=== PATIENT | female | born 1955 | race Caucasian/White ===

== ENCOUNTER 2020-05-21 09:57 | Outpatient (CLI) | payer BC, MEDICARE, SELFPAY ==
--- NOTE | 2020-05-21 10:59 | ECG_ITS ---
Measurements Intervals Independence Rate: 60 P: LA: 0 QRS: -9 QRSD: 81 T: 42 QT: 405 QTc: 406 Interpretive Statements SINUS RHYTHM NORMAL ECG Electronically Signed On 05-21-2020 11:14:27 CDT by Ervin Bower D.O.
[2020-05-21 11:35] LABS: Basophils Absolute Auto 0.1 K/mm3 (0.0-0.1); Eosinophils Absolute Auto 0.5 K/mm3 (0-0.3); Eosinophils Percent Auto 5.1 % (0-4.4); Hematocrit 41.2 % (37.0-47.0); Hemoglobin 13.6 g/dL (12.0-15.0); Immature Granulocyte Absolute 0.03 K/mm3 (0.00-0.031); Immature Granulocyte Percent A 0.3 % (0-0.5); Lymphocytes Absolute Auto 2.68 K/mm3 (0.9-3.2); Lymphocytes Percent Auto 25.7 % (18.3-44.2); Mean Corpuscular Hemoglobin 29.6 pg (26-34); Mean Corpuscular Volume 89.6 fl (80-100); Mean Platelet Volume 9.6 fl (7.4-10.4); Monocytes Absolute Auto 0.7 K/mm3 (0.1-0.6); Neutrophils Absolute Auto 6.4 K/mm3 (1.3-6.7); Neutrophils Percent Auto 60.9 % (45.5-73.1); Platelet Count Result 276 k/mm3 (150-375); Red Cell Distribution Width 12.5 % (11.5-14.5); White Blood Count 10.4 K/mm3 (4.5-10.0)
[2020-05-21 11:47] LABS: INR 0.9; Prothrombin Time 11.6 Seconds (11.1-14.7)
[2020-05-21 11:48] LABS: Partial Thromboplastin Time 26.7 SECONDS (22.3-36.8)
[2020-05-21 11:52] LABS: Alanine Aminotransferase 24 U/L (4-35); Albumin Level 4.7 g/dL (3.5-5.1); Alkaline Phosphatase 33 U/L (38-126); Anion Gap 7 mmol/L (8-16); Aspartate Amino Transferase 28 U/L (14-36); Bilirubin,Total 0.3 mg/dL (0.2-1.3); Blood Urea Nitrogen 15 mg/dL (7-17); Calcium 9.8 mg/dL (8.4-10.2); Carbon Dioxide 31 mmol/L (22-30); Chloride 102 mmol/L (98-107); Estimated Glomerular Filt Rate > 60; Glucose 103 mg/dL (65-105); Potassium 4.6 mmol/L (3.4-5.0); Sodium 140 mmol/L (137-145)
== END 2020-05-21 09:58 | disposition home or self-care (01) ==
LOC: ANHSURGERY 10:03
PROVIDERS: PCP Family Medicine; Visit Provider Urology
DX: I10 Essential (primary) hypertension (principal); N81.10 Cystocele, unspecified; Z01.818 Encounter for other preprocedural examination
CPT/HCPCS: 36415; 80053; 85025; 85610; 85730; 87086; 93005

== ENCOUNTER 2020-05-31 00:22 | Outpatient (CLI) | payer BC, MEDICARE, SELFPAY ==
[2020-06-01 13:40] LABS: SARS-CoV-2 RNA PCR Negative
== END 2020-05-31 00:23 | disposition home or self-care (01) ==
LOC: ANHCOVIDDT 00:22
PROVIDERS: PCP Family Medicine; Visit Provider Urology
DX: Z01.812 Encounter for preprocedural laboratory examination (principal); Z20.828 Contact with and (suspected) exposure to other viral communicable diseases
CPT/HCPCS: 87635; C9803; U0003

== ENCOUNTER 2020-06-03 01:02 | Day surgery (SDC) | payer BC, MEDICARE, SELFPAY ==
[2020-05-21 10:13] VITALS: BP 124/59; PULSE 59; RESP 16; TEMP 37.3; O2SAT 98; BMI 31.0
--- NOTE | 2020-05-30 16:29 | PM.IMHP ---
H&P: HPI History of Present Illness Date/Time: 05/30/20 16:29 Chief complaint: Vaginal Vault Prolapse Narrative: Poonam Wagner is a 65 year old female wtih POP and TRACEY PMFSH Social History Social History Smoking status: Never smoker Spiritual care concerns: No Meds Home Medications and Allergies Home Medications Medication Instructions Recorded Confirmed Type albuterol sulfate [ProAir HFA] 2 puff INHALATION QID PRN 05/21/20 05/21/20 History aspirin [Aspir-81] 81 mg PO DAILY 05/21/20 05/21/20 History atenolol 25 mg PO QAM 05/21/20 05/21/20 History cholecalciferol (vitamin D3) 10 mcg PO DAILY 05/21/20 05/21/20 History [Vitamin D3] lactobacillus combination no.4 3,000 mmu cells PO DAILY 05/21/20 05/21/20 History [Probiotic] levothyroxine 100 mcg PO QAM 05/21/20 05/21/20 History metformin 1,000 mg PO BID 05/21/20 05/21/20 History omega 1-cvv-ktq-fish oil [Fish Oil] 1 cap PO BID 05/21/20 05/21/20 History rosuvastatin 20 mg PO HS 05/21/20 05/21/20 History trimethoprim 100 mg PO HS 05/21/20 05/21/20 History Allergies Allergy/AdvReac Type Severity Reaction Status Date / Time nitrofurantoin Allergy Severe Rash Verified 05/21/20 10:18 [From Macrobid] Sulfa (Sulfonamide Allergy Severe Swelling Verified 05/21/20 10:18 Antibiotics) ciprofloxacin AdvReac Intermediate Nausea Verified 05/21/20 10:20 Exam Const: General: no acute distress HENMT: Mouth: Yes moist mucous membranes Eyes: General: appearance normal, both eyes and all related structures Neck: Neck: supple Resp: Effort & Inspection: normal respiratory effort GI: GI Palp: Yes Soft to palpation : Other: Anterior wall +3 apex-1. Skin: General skin exam: normal color Extrem: General: normal to inspection Psych: Mental Status: mental status grossly normal Assessment and Plan Assessment and plan (1) Prolapse of vaginal vault after hysterectomy: Code(s): N99.3 - Prolapse of vaginal vault after hysterectomy Status: Acute Assessment and Plan: Robotic colpopexy (2) TRACEY (stress urinary incontinence, female): Code(s): N39.3 - Stress incontinence (female) (male) Status: Acute Assessment and Plan: urethral sling
[2020-06-03] VITALS (19 sets, daily range): BP systolic 108–159; BP diastolic 43–83; PULSE 62–92; RESP 14–20; TEMP 36.3–37.1; O2SAT 92–100
--- NOTE | 2020-06-03 07:25 | WPDHPUPDATE1 ---
History and Physical Update Update Date/Time: 06/03/20 07:25 History and Physical has been reviewed, including an updated exam of the patient. There are NO changes in the patient's condition. Risks, benefits, and alternatives have been discussed and questions answered. Patient agrees to proceed with procedure.
--- NOTE | 2020-06-03 10:34 | WPDANESEPPF ---
Anes - Initial Pre Proc Eval Procedure: Operation Date: 06/03/20 12:00 Proposed Procedures p Robotic Sacrocolpopexy, Possible Urethral Sling - Rayray Tee MD Date/Time: 06/03/20 10:34 Surgeon: Rayray Tee MD Pre Op Diagnosis: Vaginal Vault Prolapse Patient Data Age: 65 Gender: F Height: 1.63 m Weight: 82 kg Last Vital Signs Temp 37.3 C 05/21/20 10:13 Pulse 59 L 05/21/20 10:13 Resp 16 05/21/20 10:13 BP 124/59 L 05/21/20 10:13 Pulse Ox 98 05/21/20 10:13 Allergies Allergy/AdvReac Type Severity Reaction Status Date / Time nitrofurantoin Allergy Severe Rash Verified 06/03/20 10:47 [From Macrobid] Sulfa (Sulfonamide Allergy Severe Swelling Verified 06/03/20 10:47 Antibiotics) ciprofloxacin AdvReac Intermediate Nausea Verified 06/03/20 10:47 Home Medications Medication Instructions Recorded Confirmed Type albuterol sulfate [ProAir HFA] 2 puff INHALATION QID PRN 05/21/20 06/03/20 History aspirin [Aspir-81] 81 mg PO DAILY 05/21/20 06/03/20 History atenolol 25 mg PO QAM 05/21/20 06/03/20 History cholecalciferol (vitamin D3) 10 mcg PO DAILY 05/21/20 06/03/20 History [Vitamin D3] lactobacillus combination no.4 3,000 mmu cells PO DAILY 05/21/20 06/03/20 History [Probiotic] levothyroxine 100 mcg PO QAM 05/21/20 06/03/20 History metformin 1,000 mg PO BID 05/21/20 06/03/20 History omega 3-mks-kws-fish oil [Fish Oil] 1 cap PO BID 05/21/20 06/03/20 History rosuvastatin 20 mg PO HS 05/21/20 06/03/20 History trimethoprim 100 mg PO HS 05/21/20 06/03/20 History Patient hx anesthesia problems: none Family hx anesthesia problems: none PMFSH Past Medical History Medical History (Updated 06/03/20 @ 09:37 by Manohar Aragon DO) Asthma Depression Diabetes type 2, controlled History of rheumatic fever murmur Hypertension Hypothyroidism Surgical History Surgical History (Updated 06/03/20 @ 09:37 by Manohar Aragon DO) History of appendectomy History of cholecystectomy History of hysterectomy History of tonsillectomy Social History Social History Smoking status: Never smoker Living arrangements: with family Spiritual care concerns: No Anes - Eval Final PreProcedure Day of Procedure 06/03/20 10:34 Patient weight: obese Heart: regular rate and rhythm Lungs: clear to auscultation and normal air movement Airway: Mallampati scale class II Neurological: alert and oriented Last oral intake: >/= 8 hours ASA classification: III Emergent: no Anesthetic plan: proceed Anesthesia type and monitoring: general ETT and standard monitoring Informed Consent: The patient's anesthetic plan and its attendant risks and benefits were discussed with the patient/family/POA. Questions were solicited and answers provided to the satisfaction of the patient/family/POA.
[2020-06-03] MEDS: LACTATED RINGERS 1,000 ML 30 ML IV CONT ×2 (10:55→14:00)
[2020-06-03 11:01] LABS: Glucose Point of Care 129 (65-105)
[2020-06-03] MEDS: ceFAZolin 2 GM/D5W 50 ML 2 GM/50 ML BAG IVPB (11:11)
[2020-06-03] MEDS: BUPIVACAINE/EPINEPHRINE 0.25% 50 ML VIAL 25 ML INFILTRATE (11:52)
--- NOTE | 2020-06-03 13:50 | PM.PROC ---
Procedure Note - Detailed Date of procedure: 06/03/20 Pre-op diagnosis: Vaginal Vault Prolapse Post hysterectomy vaginal vault prolapse Stress urinary incontinence Post-op diagnosis: same Procedure performed: Robotic assisted laparoscopic sacral colpopexy [place] urethral sling Description of procedure: She understands the risks of bleeding, infection, recurrence of prolapse, diskitis, postoperative voiding dysfunction including incontinence and retention, dyspareunia, persistent or recurrent stress incontinence, vaginal mesh extrusion, urinary tract mesh erosion, bowel injury or obstruction, damage to surrounding organs, medical related complications. Agrees to proceed She was correctly identified and informed consent was obtained. She is brought to the operating room. She was given general anesthesia. She was placed in the low lithotomy position. All pressure points were padded. She was given appropriate perioperative antibiotics. A time-out was performed. I anesthetized the skin 3 fingerbreadths cephalad to the umbilicus. I incised the skin. I located the fascia. I entered the fascia sharply. I placed Vicryl sutures for later fascial closure. I placed a midline trocar. Under direct vision 2 additional trocars were placed in the right and left upper quadrant. She was placed in steep Trendelenburg. The robot was docked. I then sat at the console. With the Sizer in the vagina I created a plane on the anterior and posterior vaginal wall. I took great care not to injure the vagina bladder or rectum. Of note it was very scarred in this area. I introduced the mesh into the abdomen. I sewed the anterior leaflet of mesh on the anterior vaginal wall and posterior leaflet of mesh on the posterior vaginal wall with several sutures with 2 Goritex taking great care not to go through and through. I then reflected the colon laterally. I opened up the peritoneum over the sacral promontory. I carried this incision into the cul-de-sac. I located the ureter and kept lateral. I freed up the edges of the peritoneum. I located the anterior longitudinal ligament of the sacrum. I then tensioned my mesh appropriately. I did a vaginal exam to ensure prolapse reduction without undue tension. I then sewed the proximal leaflet of mesh onto the ligament with 3 sutures of 2 0 [place]-Good. I used a 2 0 Monocryl to completely and meticulously retroperitonealized all mesh. I allowed the colon to go back into its normal anatomic location no sign of any impingement or stricturing. The abdomen was exited. Fascial sutures were closed. Skin was closed. Glue was applied. She was repositioned and prepped for urethral sling. I marked out the thigh incisions. I anesthetized the skin and made those incisions. I anesthetized the anterior vaginal wall over the mid urethra. I made a 1 cm incision. I dissected out laterally taking great care not to injure the urethra or the vaginal wall. I passed the helical trocars. First on the left and then on the right. This was done from the thigh incision towards the vaginal incision. The sling was connected to the trocars and brought out through the thigh incision. I tensioned the sling appropriately. I cut and removed the plastic sheaths. I then closed the incision with 2 0 Vicryl. Cystoscopy showed no surgical artifact in the bladder. No surgical artifact in the urethra. Ureteral orifices were seen to excrete clear yellow urine. The Patel catheter was replaced. She was awakened and transferred to the PACU in stable condition. Implants: Y mesh Anesthesia: GETA Surgeon: Rayray Tee MD Drains: Yes (Patel catheter) Packing: No Pathology: none sent Complications: No immediate complications Condition: stable Disposition: PACU
[2020-06-03 14:42] LABS: Glucose Point of Care 224 (65-105)
[2020-06-03] MEDS: ONDANSETRON INJ 4 MG/2 ML VIAL IV PUSH (16:43)
[2020-06-03] MEDS: KCL 20 MEQ/D5/0.45% SOD CHL 1,000 ML 100 ML IV CONT (16:51)
[2020-06-03] MEDS: MORPHINE SULFATE 2 MG/ML INJ IV PUSH (16:51)
--- NOTE | 2020-06-03 18:01 | PC.NURSE ---
This patient, Poonam Wagner, was received from PACU per bed to room 286 on 06/03/20 at 1621. Patient/family oriented to unit policies and routines
[2020-06-03] MEDS: ROSUVASTATIN 10 MG TABLET 20 MG PO (20:58)
[2020-06-03 21:07] LABS: Glucose Point of Care 223 (65-105)
[2020-06-03] MEDS: KETOROLAC 15 MG/ML VIAL (*BKC) IV PUSH (23:30)
[2020-06-04] VITALS (7 sets, daily range): BP systolic 90–116; BP diastolic 46–52; PULSE 75–86; RESP 16; TEMP 37.1–38; O2SAT 93–97
[2020-06-04] MEDS: KCL 20 MEQ/D5/0.45% SOD CHL 1,000 ML 100 ML IV CONT (04:49)
[2020-06-04] MEDS: KETOROLAC 15 MG/ML VIAL (*BKC) IV PUSH (05:57)
[2020-06-04] MEDS: LEVOTHYROXINE SODIUM 100 MCG TABLET PO (07:15)
[2020-06-04] MEDS: DOCUSATE SODIUM 100 MG CAPSULE PO (08:17)
[2020-06-04] MEDS: atenoloL 25 MG TABLET PO (08:19)
[2020-06-04] MEDS: metFORMIN HCL 500 MG TABLET 1000 MG PO (08:19)
[2020-06-04] MEDS: ENOXAPARIN 30 MG/0.3 ML SYRINGE SUB-Q (08:22)
[2020-06-04 08:37] LABS: Glucose Point of Care 156 (65-105)
--- NOTE | 2020-06-04 08:56 | WPDANESPN ---
Anes - Prog Note Post-Op Date/Time: 06/04/20 08:56 Cardiovascular status: normal Respiratory status: normal Airway patency: baseline Mental status: baseline Post-Op hydration status: normal Vital Signs: Last Vital Signs Temp 37.2 C 06/04/20 02:15 Pulse 86 06/04/20 08:19 Resp 16 06/04/20 05:00 BP 90/46 L 06/04/20 05:00 Pulse Ox 95 06/04/20 05:00 Pain Score (VAS): 5 I/O: Intake & Output 06/03/20 06/04/20 06/04/20 23:59 07:59 15:59 Intake Total 60 1500 Output Total 525 750 Balance -465 750 06/03/20 06/03/20 06/03/20 10:32 10:59 14:40 POC Capillary Glucose 129 H 224 H Blood Type A Positive Antibody Screen Negative 06/03/20 06/04/20 21:04 08:25 POC Capillary Glucose 223 H 156 H Blood Type Antibody Screen Post-procedural complaints: none Patient Feedback: Patient satisfied with anesthetic care.
[2020-06-04] MEDS: ACETAMINOPHEN 325 MG TABLET 650 MG PO (11:01)
[2020-06-04 12:50] LABS: Glucose Point of Care 124 (65-105)
--- NOTE | 2020-06-04 12:54 | WPDUROPN2 ---
Progress Note: A&P Assessment and Plan (1) Prolapse of vaginal vault after hysterectomy: Code(s): N99.3 - Prolapse of vaginal vault after hysterectomy Status: Acute Assessment and Plan: Patient is reluctant to ambulate. She is having some abdominal pain which is likely gas pain d/t constipation. Ok to give Simethicone 100mg QID PRN. Spoke with Dr. Tee and he agrees that she should be discharged home to encourage ambulation, increase in diet and fluids as tolerated. Take Tylenol for low grade fever, if fever of >102 occurs call the exchange or go to the ER. Urinating well on her own. Ok to discharge home today and follow up in the office as planned in two weeks. (2) TRACEY (stress urinary incontinence, female): Code(s): N39.3 - Stress incontinence (female) (male) Status: Acute Subjective Subjective Date/Time Seen: 06/04/20 12:54 Patient feeling fatigued and weak this morning, with a low grade fever of 100.4 which decreased to 98.7. She is reluctant to eat or drink, although she isn't nauseated. Review of Systems Cardiovascular: Cardiovascular: Denies chest pain and Denies dyspnea Respiratory: Respiratory: Reports no additional respiratory complaints Gastrointestinal: Gastrointestinal: Reports abdominal pain (at incision sites and pelvis), Denies nausea and Denies vomiting Genitourinary: Genitourinary: Denies dysuria, Reports pelvic pain, Denies flank pain and Denies urinary urgency Exam Resp: Effort & Inspection: normal respiratory effort Cardio: Rate: regular rate GI: GI Palp: Yes abdominal tenderness, Yes Soft to palpation and Yes Tenderness to palpation present (GI) (at incisions only, no drainage, eccymosis or edema present) Extrem: General: no edema Objective Data Vital Signs Vital Signs: Vital Signs - 24 hr 06/03/20 14:00 06/03/20 14:15 06/03/20 14:30 Temperature 97.4 F L Pulse Rate 89 84 82 Respiratory Rate 15 18 20 Blood Pressure 143/72 H 159/83 H 155/64 H Pulse Oximetry 97 95 95 06/03/20 14:45 06/03/20 15:00 06/03/20 15:15 Temperature Pulse Rate 82 81 84 Respiratory Rate 20 17 14 Blood Pressure 141/48 H 119/63 108/45 L Pulse Oximetry 92 92 92 06/03/20 15:30 06/03/20 15:45 06/03/20 16:00 Temperature Pulse Rate 85 82 87 Respiratory Rate 14 20 14 Blood Pressure 134/43 L 118/68 122/57 L Pulse Oximetry 92 92 96 06/03/20 16:09 06/03/20 16:21 06/03/20 16:45 Temperature 97.4 F L Pulse Rate 85 78 88 Respiratory Rate 14 16 Blood Pressure 138/66 147/57 H 137/58 L Pulse Oximetry 92 99 100 06/03/20 17:00 06/03/20 17:15 06/03/20 17:30 Temperature Pulse Rate 88 88 89 Respiratory Rate Blood Pressure 142/60 H 143/59 H 147/68 H Pulse Oximetry 100 100 99 06/03/20 18:00 06/03/20 19:00 06/03/20 19:45 Temperature 98.7 F Pulse Rate 92 89 89 Respiratory Rate 16 Blood Pressure 154/60 H 128/53 L 134/55 L Pulse Oximetry 99 98 99 06/04/20 02:15 06/04/20 05:00 06/04/20 08:00 Temperature 99.0 F 99.4 F Pulse Rate 80 75 86 Respiratory Rate 16 16 16 Blood Pressure 108/52 L 90/46 L 116/49 L Pulse Oximetry 95 95 93 06/04/20 08:19 06/04/20 11:00 06/04/20 11:30 Temperature 100.4 F H 98.7 F Pulse Rate 86 77 Respiratory Rate 16 Blood Pressure 109/49 L Pulse Oximetry 97 Intake/Output Intake/Output: Intake & Output 06/01/20 06/02/20 06/03/20 06/04/20 23:59 23:59 23:59 23:59 Intake Total 1010 2125 Output Total 525 1175 Balance 485 950 Meds/Results Medications: Active Medications Generic Name Dose Route Start Last Admin Trade Name Freq PRN Reason Stop Dose Admin Acetaminophen 650 mg 06/03/20 16:10 06/04/20 11:01 Tylenol Tablet PO 650 mg Q4H PRN Administration Mild Pain (1-3) or Fever Hydrocodone Bitart/Acetaminophen 1 tab 06/03/20 16:10 06/04/20 11:46 [place] 5-325 Mg PO 1 tab Q4H PRN Administration Pain Rated 4-5 Albuterol 2 puff 06/03/20 16:10 [facility]
== END 2020-06-04 14:53 | disposition home or self-care (01) ==
LOC: ANHSURGERY 09:57 → ANHOB2 16:37
PROVIDERS: PCP Family Medicine; Visit Provider Urology
PROC: (CPT 57425; principal; 2020-06-03 12:00)
DX: N81.10 Cystocele, unspecified (principal); N39.3 Stress incontinence (female) (male); Z23 Encounter for immunization; E11.9 Type 2 diabetes mellitus without complications; J45.909 Unspecified asthma, uncomplicated
CPT/HCPCS: 57288; 57425; 36415; 86850; 86900; 86901; 87635; 90471; 90686; 99199; A9270; C1771; C1781; C9803; G0008; J0360; J0690; J1650; J1885; J2250; J2270; J2405; J2704; J2710; J3010; J3480; J7030; J7120; U0003